=== PATIENT | male | born 1965 | race Hispanic/Latino ===

== ENCOUNTER 2022-05-18 23:44 | Emergency (ER) | payer OTHER ==
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
[2022-05-19 03:00] LABS: SARS-CoV-2 Antigen Rapid Res Negative (Negative)
[2022-05-19 03:57] VITALS: BP 132/79; TEMP 98; O2SAT 100
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
== END 2022-05-19 03:28 | disposition short-term general hospital (02) ==
LOC: ER 23:44
DX: S02.0XXA Fracture of vault of skull, initial encounter for closed fracture (principal); S09.90XA Unspecified injury of head, initial encounter; Z20.822 Contact with and (suspected) exposure to COVID-19
CPT/HCPCS: 36415; 70450; 87811; 99285